=== PATIENT | female | born 1990 | race Caucasian/White ===

== ENCOUNTER 2017-07-12 19:14 | Emergency (ER) | payer MEDICAID ==
[2017-07-12] MEDS ORDERED: Sodium Chloride 0.9% 1000 ML 1,000 ML ONE (19:32)
[2017-07-12] MEDS: Sodium Chloride 0.9% 1000 ML 1,000 ML IV SCH (19:35)
--- NOTE | 2017-07-12 19:36 | ERPHSYRPT ---
- History of Present Illness Time Seen by Provider: 07/12/17 19:19 Source: patient, EMS Exam Limitations: other (PT DISORIENTED) Physician History: PT PULLED OVER IN [place] PARKING LOT BECAUSE SHE FELT IT WAS UNSAFE TO DRIVE. EMS BROUGHT PT TO ER WHERE ACCUCHECK WAS 91. PT STATES SHE HAS HAD NAUSEA, VOMITING AND INTERMITTENT UPPER ABDOMINAL BURNING PAIN FOR THE PAST 2 DAYS LASTING UP TO 30 MINUTES PER EPISODE. PT DENIES CHEST PAIN, SHORTNESS OF AIR, DIARRHEA. PT IS UNABLE TO GIVE ANSWERS TO WHERE SHE IS, WHO THE PRESIDENT IS AND WHAT MONTH IT IS CURRENTLY. Allergies/Adverse Reactions: No Known Drug Allergies Allergy (Verified 07/12/17 19:41) - Review of Systems Respiratory: No Dyspnea Cardiac: No Chest Pain Abdominal/Gastrointestinal: Abdominal Pain, Nausea, Vomiting, No Diarrhea Neurological: No Headache Psychological: Other (DISORIENTED TODAY IN ER) All Other Systems: Reviewed and Negative - Nursing Vital Signs Nursing Vital Signs: Initial Vital Signs Temperature 98.2 F 07/12/17 19:19 Pulse Rate 64 07/12/17 19:19 Respiratory Rate 16 07/12/17 19:19 Blood Pressure 115/81 07/12/17 19:19 O2 Sat by Pulse Oximetry 98 07/12/17 19:19 Pain Scale Pain Intensity 0 - Physical Exam General Appearance: other (DISORIENTED) Eye Exam: PERRL/EOMI, eyes nml inspection Ears, Nose, Throat Exam: pharynx normal, moist mucous membranes Neck Exam: normal inspection, full range of motion Respiratory Exam: lungs clear Cardiovascular Exam: normal heart sounds Gastrointestinal/Abdomen Exam: soft, normal bowel sounds Back Exam: normal range of motion Extremity Exam: normal inspection, normal range of motion, No pedal edema Neurologic Exam: alert, sensation nml, other (FLAT AFFECT), No oriented x 3, No motor deficits Skin Exam: warm, dry - Course Nursing assessment & vital signs reviewed: Yes EKG Interpreted by Me: RATE (51), NORMAL AXIS, Other (SINUS ARRHYTHMIA; BRADYCARDIA.) - Radiology Exams Chest X-ray Interpretation: Interpreted by me, No Pneumonia - CT Exams Head CT Interpretation: Discussed w/radiologist (NORMAL CT HEAD) Ordered Tests: Active Orders 24 hr Category Date Time Status Accucheck STAT Care 07/12/17 19:27 Active Slurry Man STAT Care 07/12/17 19:27 Active EKG-ER Only STAT Care 07/12/17 19:27 Active IV Insertion STAT Care 07/12/17 19:27 Active Pulse Oximetry (ED) STAT Care 07/12/17 19:27 Active CHEST 2 VIEWS (PA AND LAT) Routine Exams 07/12/17 20:45 Taken HEAD WITHOUT CONTRAST [CT] Stat Exams 07/12/17 19:26 Taken ACETAMINOPHEN Stat Lab 07/12/17 19:46 Completed AMYLASE Stat Lab 07/12/17 19:46 Completed BMP Stat Lab 07/13/17 03:19 Completed BMP Urgent Lab 07/12/17 23:21 Completed CBC W DIFF Stat Lab 07/12/17 19:46 Completed CMP Stat Lab 07/12/17 19:46 Completed CULTURE,URINE Stat Lab 07/12/17 21:58 Received ETHYL ALCOHOL Stat Lab 07/12/17 19:46 Completed HCG QUALITATIVE,SERUM Stat Lab 07/12/17 19:46 Completed LIPASE Stat Lab 07/12/17 19:46 Completed Lactic Acid Stat Lab 07/12/17 19:46 Completed SALICYLATE Stat Lab 07/12/17 19:46 Completed TROPONIN Q3H Lab 07/12/17 19:46 Completed TROPONIN Q3H Lab 07/12/17 23:21 Completed TROPONIN Q3H Lab 07/13/17 03:20 Completed TROPONIN Q3H Lab 07/13/17 04:30 Ordered TROPONIN Q3H Lab 07/13/17 07:30 Ordered UA W/ MICROSCOPIC Stat Lab 07/12/17 21:58 Completed Urine Triage Profile Stat Lab 07/12/17 21:58 Completed Medication Summary Generic Name Dose Route Start Last Admin Trade Name Freq PRN Reason Stop Dose Admin Sodium Chloride 1,000 mls @ 100 mls/hr 07/12/17 19:30 07/13/17 00:49 Sodium Chloride 0.9% 1000 Ml IV 08/11/17 19:29 100 mls/hr .Q10H JANNA Administration Potassium Chloride/Sodium Chloride 1,000 mls @ 500 mls/hr 07/12/17 20:30 08/18 21:36 Sodium Chloride 0.9% W/ 20 Meq Kcl/Liter IV 08/11/17 20:29 500 mls/hr .Q2H JANNA Administration Discontinued Medications Generic Name Dose Route Start Last Admin Trade Name Freq PRN Reason Stop Dose Admin Ceftriaxone Sodium/Dextrose 1 g in 50 mls @ 100 mls/hr 07/12/17 22:54 23:03 Rocephin 1 Gm-D5w 50 Ml Bag IV 07/12/17 23:23 100 mls/hr STAT STA Administration Ceftriaxone Sodium/Dextrose Confirm 07/12/17 23:01 Rocephin 1 Gm-D5w 50 Ml Bag Administered 07/12/17 23:02 Dose 1 g in 50 mls @ ud IV .STK-MED ONE Potassium Chloride 20 meq in 100 mls @ 50 mls/hr 07/13/17 00:11 07/13/17 00: 50 Potassium Chloride 20 Meq In Water 100ml IV 07/13/17 02:10 50 mls/hr STAT ONE Administration Potassium Chloride Confirm 07/13/17 00:44 Potassium Chloride 20 Meq In Water 100ml Administered 07/13/17 00:45 Dose 100 mls @ ud IV .STK-MED ONE Lab/Rad Data: Laboratory Result Diagrams 07/12/17 19:46 07/13/17 03:19 Laboratory Results 07/13/17 07/13/17 07/12/17 Range/Units 03:20 03:19 23:21 WBC (4.0-10.5) K/mm3 RBC (4.1-5.4) M/mm3 Hgb (12.0-16.0) gm/dl Hct (35-47) % MCV (78-100) fl MCH (26-32) pg MCHC (32-36) g/dl RDW (11.5-14.0) % Plt Count (150-450) K/mm3 MPV (6-9.5) fl Gran % (36.0-66.0) % Lymphocytes % (24.0-44.0) % Monocytes % (0.0-12.0) % Eosinophils % (0.00-5.0) % Basophils % (0.0-0.4) % Basophils # (0-0.4) Sodium 147 H 148 H (136-145) mEq/L Potassium 3.7 3.4 L (3.5-5.1) mEq/L Chloride 112 H 111 H (98-107) mEq/L Carbon Dioxide 23.8 24.8 (21-32) mEq/L Anion Gap 15.0 15.1 H (5-15) MEQ/L BUN 14 14 (9-20) mg/dL Creatinine 0.60 0.65 (0.55-1.30) mg/dl Estimated GFR > 60 > 60 ML/MIN Glucose 80 99 (70-110) MG/DL Lactic Acid (0.4-2.0) Calcium 8.6 8.8 (8.5-10.1) mg/dL Total Bilirubin (0.2-1.0) mg/dL AST (15-37) U/L ALT (12-78) U/L Alkaline Phosphatase (46-116) U/L Troponin I < 0.017 < 0.017 (0.000-0.056) ng/ml Serum Total Protein (6.4-8.2) gm/dL Albumin (3.4-5.0) g/dL Amylase (25-115) U/L Lipase (73-393) U/L Serum , Qual (Negative) Ur Collection Type Urine Color (YELLOW) Urine Appearance (CLEAR) Urine pH (5-6) Ur Specific Marina (1.005-1.025) Urine Protein (Negative) Urine Ketones (NEGATIVE) Urine Blood (0-5) Mathieu/ul Urine Nitrite (NEGATIVE) Urine Bilirubin (NEGATIVE) Urine Urobilinogen (0-1) mg/dL Ur Leukocyte Esterase (NEGATIVE) Urine Microscopic RBC (0-2) /HPF Urine Microscopic WBC (0-5) /HPF Ur Epithelial Cells (FEW) /HPF Urine Bacteria (NEGATIVE) /HPF Urine Mucus (NEGATIVE) /HPF Urine Glucose (NEGATIVE) mg/dL Salicylates (2.8-20.0) mg/dl Urine Opiates Level (NEGATIVE) Ur Methadone (NEGATIVE) Acetaminophen (10-30) ug/ml Urine Barbiturates (NEGATIVE) Ur Phencyclidine (PCP) (NEGATIVE) Urine Amphetamine (NEGATIVE) U Benzodiazepine Level (NEGATIVE) Urine Cocaine (NEGATIVE) Urine Marijuana (THC) (NEGATIVE) Ethyl Alcohol (0.00-0.01) % Specimen Received 07/12/17 07/12/17 07/12/17 Range/Units 21:58 21:58 19:46 WBC (4.0-10.5) K/mm3 RBC (4.1-5.4) M/mm3 Hgb (12.0-16.0) gm/dl Hct (35-47) % MCV (78-100) fl MCH (26-32) pg MCHC (32-36) g/dl RDW (11.5-14.0) % Plt Count (150-450) K/mm3 MPV (6-9.5) fl Gran % (36.0-66.0) % Lymphocytes % (24.0-44.0) % Monocytes % (0.0-12.0) % Eosinophils % (0.00-5.0) % Basophils % (0.0-0.4) % Basophils # (0-0.4) Sodium (136-145) mEq/L Potassium (3.5-5.1) mEq/L Chloride (98-107) mEq/L Carbon Dioxide (21-32) mEq/L Anion Gap (5-15) MEQ/L BUN (9-20) mg/dL Creatinine (0.55-1.30) mg/dl Estimated GFR ML/MIN Glucose (70-110) MG/DL Lactic Acid (0.4-2.0) Calcium (8.5-10.1) mg/dL Total Bilirubin (0.2-1.0) mg/dL AST (15-37) U/L ALT (12-78) U/L Alkaline Phosphatase (46-116) U/L Troponin I (0.000-0.056) ng/ml Serum Total Protein (6.4-8.2) gm/dL Albumin (3.4-5.0) g/dL Amylase (25-115) U/L Lipase (73-393) U/L Serum , Qual NEGATIVE (Negative) Ur Collection Type CATH Urine Color DARK YELLOW (YELLOW) Urine Appearance CLOUDY (CLEAR) Urine pH 6.0 (5-6) Ur Specific Marina 1.020 (1.005-1.025) Urine Protein 30 (Negative) Urine Ketones SMALL (NEGATIVE) Urine Blood NEGATIVE (0-5) Mathieu/ul Urine Nitrite NEGATIVE (NEGATIVE) Urine Bilirubin SMALL (NEGATIVE) Urine Urobilinogen NORMAL (0-1) mg/dL Ur Leukocyte Esterase 1+ (NEGATIVE) Urine Microscopic RBC 2-5 (0-2) /HPF Urine Microscopic WBC 15-25 (0-5) /HPF Ur Epithelial Cells MODERATE (FEW) /HPF Urine Bacteria MODERATE (NEGATIVE) /HPF Urine Mucus MANY (NEGATIVE) /HPF Urine Glucose NEGATIVE (NEGATIVE) mg/dL Salicylates (2.8-20.0) mg/dl Urine Opiates Level NEG. (NEGATIVE) Ur Methadone NEG. (NEGATIVE) Acetaminophen (10-30) ug/ml Urine Barbiturates NEG. (NEGATIVE) Ur Phencyclidine (PCP) NEG. (NEGATIVE) Urine Amphetamine NEG. (NEGATIVE) U Benzodiazepine Level NEG. (NEGATIVE) Urine Cocaine NEG. (NEGATIVE) Urine Marijuana (THC) POS. (NEGATIVE) Ethyl Alcohol (0.00-0.01) % Specimen Received 07/12/17 2200 07/12/17 07/12/17 07/12/17 Range/Units 19:46 19:46 19:46 WBC (4.0-10.5) K/mm3 RBC (4.1-5.4) M/mm3 Hgb (12.0-16.0) gm/dl Hct (35-47) % MCV (78-100) fl MCH (26-32) pg MCHC (32-36) g/dl RDW (11.5-14.0) % Plt Count (150-450) K/mm3 MPV (6-9.5) fl Gran % (36.0-66.0) % Lymphocytes % (24.0-44.0) % Monocytes % (0.0-12.0) % Eosinophils % (0.00-5.0) % Basophils % (0.0-0.4) % Basophils # (0-0.4) Sodium 145 (136-145) mEq/L Potassium 3.0 L* (3.5-5.1) mEq/L Chloride 107 (98-107) mEq/L Carbon Dioxide 24.2 (21-32) mEq/L Anion Gap 16.4 H (5-15) MEQ/L BUN 15 (9-20) mg/dL Creatinine 0.64 (0.55-1.30) mg/dl Estimated GFR > 60 ML/MIN Glucose 88 (70-110) MG/DL Lactic Acid 0.8 (0.4-2.0) Calcium 9.4 (8.5-10.1) mg/dL Total Bilirubin 0.40 (0.2-1.0) mg/dL AST 13 L (15-37) U/L ALT 12 (12-78) U/L Alkaline Phosphatase 84 (46-116) U/L Troponin I < 0.017 (0.000-0.056) ng/ml Serum Total Protein 7.5 (6.4-8.2) gm/dL Albumin 3.8 (3.4-5.0) g/dL Amylase 26 (25-115) U/L Lipase 83 (73-393) U/L Serum , Qual (Negative) Ur Collection Type Urine Color (YELLOW) Urine Appearance (CLEAR) Urine pH (5-6) Ur Specific Marina (1.005-1.025) Urine Protein (Negative) Urine Ketones (NEGATIVE) Urine Blood (0-5) Mathieu/ul Urine Nitrite (NEGATIVE) Urine Bilirubin (NEGATIVE) Urine Urobilinogen (0-1) mg/dL Ur Leukocyte Esterase (NEGATIVE) Urine Microscopic RBC (0-2) /HPF Urine Microscopic WBC (0-5) /HPF Ur Epithelial Cells (FEW) /HPF Urine Bacteria (NEGATIVE) /HPF Urine Mucus (NEGATIVE) /HPF Urine Glucose (NEGATIVE) mg/dL Salicylates 5.6 (2.8-20.0) mg/dl Urine Opiates Level (NEGATIVE) Ur Methadone (NEGATIVE) Acetaminophen < 2.0 L (10-30) ug/ml Urine Barbiturates (NEGATIVE) Ur Phencyclidine (PCP) (NEGATIVE) Urine Amphetamine (NEGATIVE) U Benzodiazepine Level (NEGATIVE) Urine Cocaine (NEGATIVE) Urine Marijuana (THC) (NEGATIVE) Ethyl Alcohol < 0.010 (0.00-0.01) % Specimen Received 07/12/17 Range/Units 19:46 WBC 7.8 (4.0-10.5) K/mm3 RBC 3.87 L (4.1-5.4) M/mm3 Hgb 12.4 (12.0-16.0) gm/dl Hct 37.5 (35-47) % MCV 96.9 (78-100) fl MCH 32.0 (26-32) pg MCHC 33.1 (32-36) g/dl RDW 11.9 (11.5-14.0) % Plt Count 240 (150-450) K/mm3 MPV 11.5 H (6-9.5) fl Gran % 59.0 (36.0-66.0) % Lymphocytes % 33.9 (24.0-44.0) % Monocytes % 6.3 (0.0-12.0) % Eosinophils % 0.5 (0.00-5.0) % Basophils % 0.3 (0.0-0.4) % Basophils # 0.02 (0-0.4) Sodium (136-145) mEq/L Potassium (3.5-5.1) mEq/L Chloride (98-107) mEq/L Carbon Dioxide (21-32) mEq/L Anion Gap (5-15) MEQ/L BUN (9-20) mg/dL Creatinine (0.55-1.30) mg/dl Estimated GFR ML/MIN Glucose (70-110) MG/DL Lactic Acid (0.4-2.0) Calcium (8.5-10.1) mg/dL Total Bilirubin (0.2-1.0) mg/dL AST (15-37) U/L ALT (12-78) U/L Alkaline Phosphatase (46-116) U/L Troponin I (0.000-0.056) ng/ml Serum Total Protein (6.4-8.2) gm/dL Albumin (3.4-5.0) g/dL Amylase (25-115) U/L Lipase (73-393) U/L Serum , Qual (Negative) Ur Collection Type Urine Color (YELLOW) Urine Appearance (CLEAR) Urine pH (5-6) Ur Specific Marina (1.005-1.025) Urine Protein (Negative) Urine Ketones (NEGATIVE) Urine Blood (0-5) Mathieu/ul Urine Nitrite (NEGATIVE) Urine Bilirubin (NEGATIVE) Urine Urobilinogen (0-1) mg/dL Ur Leukocyte Esterase (NEGATIVE) Urine Microscopic RBC (0-2) /HPF Urine Microscopic WBC (0-5) /HPF Ur Epithelial Cells (FEW) /HPF Urine Bacteria (NEGATIVE) /HPF Urine Mucus (NEGATIVE) /HPF Urine Glucose (NEGATIVE) mg/dL Salicylates (2.8-20.0) mg/dl Urine Opiates Level (NEGATIVE) Ur Methadone (NEGATIVE) Acetaminophen (10-30) ug/ml Urine Barbiturates (NEGATIVE) Ur Phencyclidine (PCP) (NEGATIVE) Urine Amphetamine (NEGATIVE) U Benzodiazepine Level (NEGATIVE) Urine Cocaine (NEGATIVE) Urine Marijuana (THC) (NEGATIVE) Ethyl Alcohol (0.00-0.01) % Specimen Received - Progress Progress Note: 07/13/17 04:03 REPEAT K+ = 3.7. PT IS NOW ORIENTED X3. - Departure Time of Disposition: 04:13 Departure Disposition: Home Clinical Impression: UTI, HYPOKALEMIA, MARIJUANA USE Condition: Stable Critical Care Time: No Referrals: Provider,Unknown [Primary Care Provider] - Instructions: Urinary Tract Infection (UTI) Additional Instructions: FOLLOW UP WITH PRIVATE DOCTOR TOMORROW. DO NOT USE MARIJUANA. Prescriptions: Smz/Tmp Ds Tablet [Bactrim Ds Tablet] 1 udtab PO BID #20 tablet
[2017-07-12 19:51] LABS: BASOPHIL % 0.3 % (0.0-0.4); Eosinophil % 0.5 % (0.00-5.0); Lymphocytes % 33.9 % (24.0-44.0); Mean Cell Volume 96.9 fl (78-100); Mean Platelet Volume 11.5 fl (6-9.5); Monocytes % 6.3 % (0.0-12.0); Platelet Count 240 K/mm3 (150-450); Red Blood Count 3.87 M/mm3 (4.1-5.4); Red Cell Distribution Width 11.9 % (11.5-14.0); White Blood Count 7.8 K/mm3 (4.0-10.5)
[2017-07-12 20:13] LABS: ALBUMIN 3.8 g/dL (3.4-5.0); ALKALINE PHOSPHATASE 84 U/L (46-116); ANION GAP 16.4 MEQ/L (5-15); BLOOD UREA NITROGEN 15 mg/dL (9-20); CHLORIDE 107 mEq/L (98-107); Carbon Dioxide 24.2 mEq/L (21-32); ETHYL ALCOHOL < 0.010 % (0.00-0.01); Glucose 88 MG/DL (70-110); LIPASE 83 U/L (73-393); SGOT/AST 13 U/L (15-37); SGPT/ALT 12 U/L (12-78); SODIUM 145 mEq/L (136-145); Total Protein 7.5 gm/dL (6.4-8.2)
[2017-07-12 20:15] LABS: ACETAMINOPHEN < 2.0 ug/ml (10-30)
[2017-07-12] MEDS ORDERED: Sodium Chloride 0.9% W/ 20 mEq KCl/LITER 1,000 ML IV SCH (20:30)
[2017-07-12] MEDS ORDERED: Sodium Chloride 0.9% W/ 20 mEq KCl/LITER 1,000 ML IV ONE (21:35)
[2017-07-12 22:16] LABS: Bacteria MODERATE /HPF (NEGATIVE); Bilirubin SMALL (NEGATIVE); Blood NEGATIVE Ery/ul (0-5); COMPLETE URINE MICROSCOPIC? YES; Collection Type CATH; Epithelial Cells MODERATE /HPF (FEW); Glucose NEGATIVE (NEGATIVE); Leukocyte Esterase 1+ (NEGATIVE); Mucus MANY /HPF (NEGATIVE); WBC 15-25 /HPF (0-5)
[2017-07-12 22:17] LABS: ADD URINE CULTURE? YES (NO)
[2017-07-12] MEDS ORDERED: ROCEPHIN 1 Gm-D5w 50 ml Bag** 1 G/50 ML IVPB IV STA (22:54)
[2017-07-12] MEDS ORDERED: ROCEPHIN 1 Gm-D5w 50 ml Bag** 1 G/50 ML IVPB IV ONE (23:01)
[2017-07-12 23:50] LABS: ANION GAP 15.1 MEQ/L (5-15); BLOOD UREA NITROGEN 14 mg/dL (9-20); CHLORIDE 111 mEq/L (98-107); Carbon Dioxide 24.8 mEq/L (21-32); Glucose 99 MG/DL (70-110); Potassium 3.4 mEq/L (3.5-5.1); SODIUM 148 mEq/L (136-145)
[2017-07-12 23:51] LABS: TROPONIN < 0.017 ng/ml (0.000-0.056)
[2017-07-13] MEDS ORDERED: POTASSIUM CHLORIDE 20 mEq IN WATER 100ML 20 MEQ/100 ML BAG IV ONE (00:11)
[2017-07-13] MEDS ORDERED: POTASSIUM CHLORIDE 20 mEq IN WATER 100ML 100 ML IV ONE (00:44)
[2017-07-13] MEDS ORDERED: Sodium Chloride 0.9% 1000 ML 1,000 ML ONE (00:44)
[2017-07-13] MEDS: Sodium Chloride 0.9% 1000 ML 1,000 ML IV SCH (00:49)
[2017-07-13 02:19] VITALS: O2SAT 99
[2017-07-13 03:48] LABS: BLOOD UREA NITROGEN 14 mg/dL (9-20); CHLORIDE 112 mEq/L (98-107); Carbon Dioxide 23.8 mEq/L (21-32); Glucose 80 MG/DL (70-110); Potassium 3.7 mEq/L (3.5-5.1); SODIUM 147 mEq/L (136-145)
[2017-07-13 04:45] VITALS: BP 98/56; PULSE 54
--- NOTE | 2017-07-13 08:44 | XRAY ---
Indication: Dizziness. Disorientated. Comparison: None AP/lateral chest demonstrates normal heart, lungs, and bony thorax with incidental bilateral breast implants.
--- NOTE | 2017-07-13 08:46 | XRAY ---
Indication: Dizziness. Disorientated. Multiple contiguous axial images obtained through the head without contrast. Comparison: None Study slightly degraded by motion artifact. Grossly normal appearing brain parenchyma, ventricles, and bony calvarium. Visualized paranasal sinuses and mastoid air cells are clear. Impression: Normal CT head without contrast exam. CT DI 70.69
== END 2017-07-13 04:51 | disposition home or self-care (01) ==
LOC: ED 19:14
DX: N39.0 Urinary tract infection, site not specified (principal); E87.6 Hypokalemia; F12.90 Cannabis use, unspecified, uncomplicated
CPT/HCPCS: 36000; 36415; 70450; 71020; 80048; 80053; 80307; 81000; 82150; 82962; 83605; 83690; 84484; 84703; 85025; 87086; 93005; 93041; 96360; 96361; 96365; 96366; 96367; 99284; G0481; J0696; J3480; P9612